=== PATIENT | female | born 1965 | race Two or more races ===

== ENCOUNTER 2016-09-27 12:36 | Emergency (ER) | payer MEDICAID ==
[~2016-09-27] VITALS: Ht 167.6 cm; Wt 77.1 kg
[~2016-09-27 12:36] MED LIST: ALBUTEROL SULF8.5 GM INH; LISINOPRIL20 MG ORAL; METHYLPREDNISOLO1 GM MC; PREDNISONE20 MG ORAL
[2016-09-27 12:38] VITALS: BP 145/97
[2016-09-27] MEDS ORDERED: UNOBMED (12:45)
--- NOTE | 2016-09-27 13:18 | Emergency Room Report ---
History of Present Illness General Chief Complaint: Multiple Trauma/Fall Source: Patient Present Illness HPI 51-year-old female presents to emergency Department complaining of bruising, swelling and pain rated as 6/10 in severity in the right hand, right wrist and right humerus since yesterday. Status post mechanical trip and fall. Patient denies hitting her head or consciousness. Patient denies previous injury to the extremity. Pain is exacerbated upon movement or palpation to 8/10 in severity. Patient states she fell on an outstretched arm. Denies numbness or tingling or obvious deformity. Denies numbness tingling or loss of sensation or gross motor movements of the extremities, incontinence of bowel or bladder. Denies CP, Palpitations, LOC, AMS, dizziness, Changes in Vision, Sensation, paresthesias, or a sudden severe headache. She has past medical history of high blood pressure and psoriasis. Allergies: Coded Allergies: No Known Allergies (Unverified , 01/11/13) Patient History Past Medical History: see triage record Past Surgical History: none Pertinent Family History: none Now: No Immunizations: UTD Reviewed Nursing Documentation: PMH: Agreed, PSxH: Agreed Nursing Documentation-PMH Past Medical History: No History, Except For Hx Hypertension: Yes Review of Systems All Other Systems: negative except mentioned in HPI Physical Exam Vital Signs Date Time Temp Pulse Resp B/P Pulse Ox O2 Delivery O2 Flow Rate FiO2 09/27/16 12:38 97.9 16 145/97 96 Room Air 09/27/16 12:38 98 Sp02 EP Interpretation: reviewed, normal General Appearance: no apparent distress, alert, GCS 15, non-toxic Head: normocephalic, atraumatic Eyes: bilateral eye PERRL, bilateral eye normal inspection ENT: hearing grossly normal, normal pharynx, no angioedema, normal voice Neck: full range of motion, supple/symm/no masses Respiratory: lungs clear, normal breath sounds, speaking full sentences Cardiovascular #1: regular rate, rhythm, no edema Cardiovascular #2: 2+ radial (R), 2+ radial (L) Musculoskeletal: back normal, gait/station normal, normal range of motion, tender - TTP to lateral right hand and wrist, with posterior and lateral TTP and bruising to the right humerus. no obvious deformity, pt. is NVI, good capillary refill. Neurologic: alert, oriented x3, responsive, motor strength/tone normal, sensory intact, speech normal Psychiatric: judgement/insight normal, memory normal, mood/affect normal, no suicidal/homicidal ideation Reflexes: 4+ bicep (R), 4+ bicep (L), 4+ tricep (R), 4+ tricep (L), 4+ knee (R) , 4+ knee (L) Skin: normal color, no rash, warm/dry, well hydrated Lymphatic: no adenopathy Medical Decision Making PA Attestation Dr. Marino is my supervising Physician whom patient management has been discussed with. Diagnostic Impression: Primary Impression: Hand fracture, right Qualified Codes: S62.91XA - Unspecified fracture of right wrist and hand, initial encounter for closed fracture Additional Impression: Fx pisiform-closed Qualified Codes: S62.164A - Nondisplaced fracture of pisiform, right wrist, initial encounter for closed fracture ER Course 51-year-old female presents to emergency Department complaining of bruising, swelling and pain rated as 6/10 in severity in the right hand, right wrist and right humerus since yesterday. Status post mechanical trip and fall. Patient denies hitting her head or consciousness. Patient denies previous injury to the extremity. Pain is exacerbated upon movement or palpation to 8/10 in severity. Patient states she fell on an outstretched arm. Denies numbness or tingling or obvious deformity. Ddx considered but are not limited to Fracture, dislocation, contusion, Sprain/ Strain/Spasm.-- clinical suspicion for hand fracture as moderate bruising and tenderness to lateral right hand. Vital signs: are WNL, pt. is afebrile H&PE are most consistent with musculoskeletal injury will r/o fractures with imaging. ORDERS: - X-ray Right Hand 3 views - negative for fx, Dislocation, or significant soft tissue injury, per preliminary read in ED by Dr. Marino - X-ray Right Wrist 3 views - POSITIVE FOR Pisiform Fracture of the right hand, Dislocation, or significant soft tissue injury, per preliminary read in ED by Dr. Marino and Dr. Vega - X-ray Right Humerus 3 views - negative for fx, Dislocation, or significant soft tissue injury, per preliminary read in ED by Dr. Marino ED INTERVENTIONS: - Tylenol 650mg PO - Pt. given ICE PACK - Right Volar wrist/hand Splint applied by recycling technician. Pt. remains neurovascularly intact. - Right arm Sling applied by recycling technician. Pt. remains neurovascularly intact. DISCHARGE: At this time pt. is stable for d/c to home. Will provide printed patient care instructions, and any necessary prescriptions. Care plan and follow up instructions have been discussed with the patient prior to discharge. Last Vital Signs Date Time Temp Pulse Resp B/P Pulse Ox O2 Delivery O2 Flow Rate FiO2 09/27/16 12:38 97.9 98 16 145/97 96 Room Air Disposition: HOME, SELF-CARE Condition: Stable Scripts Ibuprofen* (MOTRIN*) 600 Mg Tablet 600 MG ORAL THREE TIMES A DAY, #20 TAB 0 Refills Prov: Nicol Padron 09/27/16 Hydrocodone Bit/Acetaminophen 5-325* (NORCO 5-325 TABLET*) 1 Each Tablet 1 TAB ORAL Q6HR Y for For Pain, #9 TAB Prov: Nicol Padron 09/27/16 Referrals: VAN HOLLOWAY (PCP) Patient Instructions: Wrist Fracture Additional Instructions: Take medications as directed. Follow up with PCP in 3-5 days Return sooner to ED if new symptoms occur, or current symptoms become worse. Do not drink alcohol, drive, or operate heavy machinery while taking [ ] as this may cause drowsiness. - Please note that this Emergency Department Report was dictated using [employer] transfer clerk technology software, occasionally this can lead to erroneous entry secondary to interpretation by the dictation equipment. Nicol Padron Sep 27, 2016 13:18
--- NOTE | 2016-09-27 14:23 | Diagnostic Imaging Report ---
Indications: PAIN Technique: Two views of the right forearm Comparison: None Findings: No acute fractures. No dislocations. The joint spaces are preserved Impression: Negative
[2016-09-27] MEDS ORDERED: IBUPROFEN600 MG ORAL (14:49)
[2016-09-27] MEDS ORDERED: NORCO 5-325 TA1 EAC1 ORAL (14:49)
[2016-09-27 15:05] VITALS: BP 145/97
--- NOTE | 2016-09-27 16:26 | Diagnostic Imaging Report ---
Indication: PAIN Technique: 3 views right hand Comparison: none Findings: No acute fractures. No dislocations. There are mild degenerative changes of the second distal interphalangeal joint. The joint spaces are preserved. Bones are equivocally mildly osteoporotic Impression: No acute bony trauma Minimal degenerative changes of second distal interphalangeal joint Equivocal mild osteoporotic changes
--- NOTE | 2016-09-27 16:26 | Diagnostic Imaging Report ---
Clinical Indication:PAIN Technique: 3 views of the right wrist Comparison: None Findings: No acute fractures. No dislocations. Joint spaces are preserved. Impression: Negative
== END 2016-09-27 15:05 | disposition home or self-care (01) ==
LOC: EMR 13:12
DX: S62.91XA Unspecified fracture of right hand, initial encounter for closed fracture (principal); S62.164A Nondisplaced fracture of pisiform, right wrist, initial encounter for closed fracture; W01.0XXA Fall on same level from slipping, tripping and stumbling without subsequent striking against object, initial encounter; Y93.9 Activity, unspecified; Y92.9 Unspecified place or not applicable; I10 Essential (primary) hypertension; M79.631 Pain in right forearm
CPT/HCPCS: 29125; 29240; 99284